=== PATIENT | male | born 1960 | race Caucasian/White ===

== ENCOUNTER 2017-01-18 05:07 | Inpatient (IN) | payer OTHER ==
--- NOTE | 2017-01-14 16:36 | PREOPHP ---
DATE OF ADMISSION: 01/18/2017 This patient is being admitted electively on 01/18/[address] Harry Luna. 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 He has had low back pain with radiation down the left leg and now has a left foot drop. The patient has failed medical therapy and has decided to undergo a lumbar sp ine surgery to take care of the problem. The patient denies any chest pain, shortness of breath, co ugh, ankle swelling. CURRENT MEDICATIONS: Include the followin. Allopurinol 100 mg twice a day. 2. Doxycycline 100 mg twice a day. 3. Loratadine 10 mg a day. 4. Vitamin C 1000 mg a day. PAST MEDICAL HISTORY: Remarkable for gout and allergic rhinitis. ALLERGIES: PENICILLIN AND AZITHROMYCIN. SURGICAL HISTORY: Bilateral shoulder surgery, right knee arthroscopy x2, vasectomy, tonsillectomy. FAMILY HISTORY: His father is of COPD. His mother is alive and well. SOCIAL HISTORY: The patient does not smoke, drinks alcohol socially. OCCUPATION: airplane captain. REVIEW OF SYSTEMS: CONSTITUTIONAL: No chills, no weight gain, no loss of appetite, no fever, no weakness, no weight lo ss, no fatigue. OPHTHALMOLOGIC: Negative. EARS, NOSE AND THROAT: Negative. CARDIORESPIRATORY: He denies any exertional chest pain or chest pressure. He has no history of hea rt disease or hypertension. GASTROINTESTINAL: Negative. NEUROLOGIC: He does have some tingling in his left lower leg and has a left foot drop. HEMATOLOGIC AND LYMPHATICS: Negative. UROLOGIC: Negative. PHYSICAL EXAMINATION: GENERAL: At this time reveals a well-developed man in no apparent distress. VITAL SIGNS: Temperature 97.6, pulse is 75, blood pressure 130/80. HEENT: Head normocephalic. Eyes: Extraocular muscles intact. Nose and mouth are normal. NECK: Supple. No neck vein distention. LUNGS: Clear to auscultation. HEART: Regular rhythm. No murmurs, gallops or rubs. ABDOMEN: Soft, nontender, no masses or megaly. EXTREMITIES: No peripheral edema. Pedal pulses were 2+ bilaterally. IMPRESSION: This patient is cleared for surgery. I will follow the patient postoperatively. Dictated By: GALINDO RAI MD ND/NTS Conf#: [id number] ELDA#: [id number]
[2017-01-17 14:51] VITALS: BMI 41.1
[2017-01-18] VITALS (18 sets, daily range): BP systolic 108–148; BP diastolic 62–108; PULSE 80–88; RESP 11–25; Ht 188 cm; Wt 144.2 kg
[~2017-01-18] VITALS: Ht 188 cm; Wt 144.2 kg
[~2017-01-18 05:07] MED LIST: LACTATED RINGER'S 1,000 ML IV* SCH
[2017-01-18] MEDS ORDERED: CEFAZOLIN 2 GM/50 ML (PMX) 50 ML IVPB ONE (06:00)
[2017-01-18] MEDS ORDERED: BLACK CHERRY PO (06:16)
[2017-01-18] MEDS ORDERED: ALLO100T PO (06:16)
[2017-01-18] MEDS ORDERED: SALM1CAP2 PO (06:16)
[2017-01-18] MEDS ORDERED: NIAC500T22 PO (06:16)
[2017-01-18] MEDS ORDERED: LORA10TA3 PO (06:16)
[2017-01-18] MEDS ORDERED: DOXY100T20 PO (06:16)
[2017-01-18] MEDS ORDERED: ASC500 PO (06:16)
--- NOTE | 2017-01-18 06:54 | HPN ---
Date/Time of Note Date/Time of Note DATE: 01/18/17 TIME: 06:54 Interval H&P Admission Note Pt. seen H&P reviewed: No system changes BIRGIT BIRD MD January 18, 2017 06:54
[2017-01-18] MEDS ORDERED: MIDAZOLAM 1 MG/ML 2 ML INJ ONE (06:58)
[2017-01-18] MEDS ORDERED: SUCCINYLCHOLINE CHLORIDE 100 MG/5 ML SYG IV ONE (06:58)
[2017-01-18] MEDS ORDERED: PROPOFOL 100 ML ONE ×2 (06:58→07:33)
[2017-01-18] MEDS ORDERED: FENTAnyl 50 MCG/ML VIAL ONE ×2 (06:58→07:34)
[2017-01-18] MEDS ORDERED: ROCURONIUM 50 MG INJ ONE (06:58)
[2017-01-18] MEDS ORDERED: BUPIVACAINE 0.25% (MPF) 10 ML 10 ML VIAL ONE (07:14)
[2017-01-18] MEDS ORDERED: POLYMYXIN/BACITRACIN 1L IRRIG ONE (07:14)
[2017-01-18] MEDS ORDERED: GELATIN SIZE 100 SPONGE ONE (07:14)
[2017-01-18] MEDS ORDERED: THROMBIN 5000 UNIT VIAL ONE ×2 (07:15→07:37)
[2017-01-18] MEDS ORDERED: hydrALAzine 20 MG INJ ONE (07:33)
[2017-01-18] MEDS ORDERED: LABETALOL HCL 20MG INJ ONE (07:37)
[2017-01-18] MEDS ORDERED: PHENYLephrine (100 MCG/ML) 5ML SYG ONE ×2 (07:41→07:54)
[2017-01-18] MEDS ORDERED: METOCLOPRAMIDE 10 MG INJ ONE (08:19)
[2017-01-18] MEDS ORDERED: KETOROLAC 30 MG INJ ONE (08:19)
[2017-01-18] MEDS ORDERED: ONDANSETRON 4 MG INJ ONE (08:19)
[2017-01-18] MEDS ORDERED: ACETAMINOPHEN 1000MG/100ML IV 100 ML ONE (08:19)
[2017-01-18] MEDS ORDERED: FAMOTIDINE 20 MG INJ ONE (08:19)
[2017-01-18] MEDS ORDERED: DEXAMETHASONE 4 MG/ML 1 ML INJ ONE (08:19)
[2017-01-18] MEDS ORDERED: GLYCOPYRROLATE 0.4 MG INJ ONE (08:36)
[2017-01-18] MEDS ORDERED: NEOSTIGMINE 3 MG/3 ML SYRINGE ONE (08:36)
[2017-01-18] MEDS ORDERED: MEPERIDINE 25 MG INJ IV PRN (09:00)
[2017-01-18] MEDS ORDERED: EPHEDrine SULFATE 50 MG/5 ML SYG IV PRN (09:00)
[2017-01-18] MEDS ORDERED: morphine (1 MG/ML) 10ML SYRINGE IV PRN ×3 (09:00)
[2017-01-18] MEDS ORDERED: METOCLOPRAMIDE 10 MG INJ IV PRN (09:00)
[2017-01-18] MEDS ORDERED: FENTAnyl 50 MCG/ML VIAL IV PRN ×3 (09:00)
[2017-01-18] MEDS ORDERED: ONDANSETRON 4 MG INJ IV PRN ×2 (09:00→09:30)
[2017-01-18] MEDS ORDERED: LABETALOL HCL 20MG INJ IV PRN (09:00)
[2017-01-18] MEDS ORDERED: hydrALAzine 20 MG INJ IV PRN (09:00)
[2017-01-18] MEDS ORDERED: DIPHENHYDRAMINE 50 MG INJ IV PRN (09:00)
[2017-01-18] MEDS ORDERED: HYDROmorphONE (0.2 MG/ML) 10ML SYG IV PRN ×2 (09:00)
[2017-01-18] MEDS: HYDROmorphONE (0.2 MG/ML) 10ML SYG IV PRN ×3 (09:19→09:37)
[2017-01-18] MEDS ORDERED: DIAZEPAM 5 MG TAB PO PRN (09:30)
[2017-01-18] MEDS ORDERED: AL HYDROX/MG HYDROX/SIMETH 30 ML CUP PO PRN (09:30)
[2017-01-18] MEDS ORDERED: NALOXONE (0.4 MG/ML) INJ IV PRN (09:30)
[2017-01-18] MEDS ORDERED: TRIMETHOBENZAMIDE 100 MG/ML VIAL IM PRN (09:30)
[2017-01-18] MEDS ORDERED: HYDROmorphONE 0.2 MG/ML PCA IV SCH (09:30)
[2017-01-18] MEDS ORDERED: PROCHLORPERAZINE 10 MG TAB PO PRN (09:30)
[2017-01-18] MEDS ORDERED: ZOLPIDEM 5 MG TAB PO PRN (09:30)
[2017-01-18] MEDS ORDERED: NACL 0.9% 3 ML SYG IV SCH (09:30)
[2017-01-18] MEDS ORDERED: HYDROCODONE/APAP (5/325) TAB PO PRN (09:30)
[2017-01-18] MEDS ORDERED: DIPHENHYDRAMINE 50 MG CAP PO PRN (09:30)
[2017-01-18] MEDS ORDERED: DIAZEPAM 5 MG/ML SYG IM PRN (09:30)
[2017-01-18] MEDS ORDERED: BETHANECHOL 25 MG TAB PO PRN (09:30)
[2017-01-18] MEDS ORDERED: ACETAMINOPHEN 325 MG TAB PO PRN (09:30)
[2017-01-18] MEDS ORDERED: CEPASTAT LOZENGE MT PRN (09:30)
--- NOTE | 2017-01-18 10:18 | OPR ---
DATE OF OPERATION: 01/18/2017 PREOPERATIVE DIAGNOSIS: Herniated disk L4-5 on the left. POSTOPERATIVE DIAGNOSIS: Herniated disk, L4-5 on the left. OPERATION PERFORMED: 1. Left hemilaminotomy, L4. 2. Microdiskectomy, L4-5 on the left. 3. Medial facetectomy and foraminotomy, L4-5 on the left. 4. Cosmetic wound closure (2.6 cm). 5. Lateral localized lumbar radiographs (2). 6. Intraoperative nerve monitoring (1 hour). SURGEON: Harry Luna MD IRON MELTER: NATALIYA Flower ANESTHESIA: General endotracheal. ANESTHESIOLOGIST: Josue Cole MD ESTIMATED BLOOD LOSS: 10 mL-none replaced. DRAINS: Two medium Hemovac drains employed. COMPLICATIONS: None. PERTINENT HISTORY AND PHYSICAL: This is a 56-year-old male with persistent back and left leg pain w hich has been unrelieved by conservative management following industrial injury of 01/10/2010. He h as had extensive care since that time, has remained symptomatic. He has undergone a number of diagn ostic studies including an MRI of the lumbar spine, which demonstrated a herniated disk L4-5 on the left. Treatment options were discussed with the patient, who elected to proceed with surgery. OPERATIVE FINDINGS AT SURGERY: A small left paracentral herniation at L4-5 was confirmed. Baseline intraoperative nerve monitoring revealed a decrease in the left L4 potential of 30%, the left L5 po tential of 60%. These returned to normal at the completion of the surgery. OPERATIVE PROCEDURE: With the patient in supine position after satisfactory induction of general en dotracheal anesthesia by Dr. Cole, the patient was turned to the prone kneeling position on the [facility] frame. All pressure points were carefully padded. Back was prepped and draped in usual shiloh rile fashion. Athrombic pumps were applied to the legs below the knees to be prevent venous stasis during and after procedure. Two spinal needles were placed next to what was felt to be the L4 and L 5 spinous processes, lateral roentgenogram was taken which confirmed anatomic localization. A 2.6 c m incision then carried out midline over the spinous process of L4 after the skin was infiltrated wi th 0.25% Marcaine without epinephrine for postoperative analgesia. Superficial retractors were plac ed and hemostasis secured with electrocautery. Throughout the procedure, copious amounts of antibac terial irrigating solution were used to periodically irrigate the wound. The fascia was incised in midline with a hot knife and unilateral subperiosteal dissection carried out at L4 on the left. Anabell p retractors were placed with and deep hemostasis secured with electrocautery. A second intraoperat kristina radiograph was taken with deep retractor at what was felt to be the L4-5 interspace, and this wa s confirmed with second x-ray. A left hemilaminotomy at L4 was then carried out using Leksell ronge ur, Kerrison punches and curettes. Ligamentum flavum was excised with sharp dissection. The operat ing microscope was then moved into place. A medial facetectomy and foraminotomy was accomplished us ing small hand osteotome, mallet, Kerrison punches and curettes. The L5 root was then mobilized med ially and protected with Nohelia nerve root retractor using microdissection technique. This reveal ed a herniation of the L4-5 disk on the left. A 15 blade knife used to cut a rectangular window in the annulus and posterior longitudinal ligament and multiple degenerative disk fragments were harves jasvir with pituitary rongeurs and sent to laboratory for pathologic study. Additional fragments were harvested using Ruby curettes. A thorough search of the floor of the canal was made with an arth roscopic probe. No additional fragments were encountered. The epidural hemostasis was secured with bipolar electrocautery on low setting. The anesthesiologist was then asked to perform a Valsalva m aneuver at 40 mmHg and no spinal fluid leakage was noted. The wound was closed in layers over 2 med ium Hemovac drains, one below the fascia and one above the fascia using #1 Vicryl [id number] ap proximating sutures in deep paralumbar musculature and deep fascia of back, 2-0 Vicryl subcutaneous approximating sutures in subcu in subcu tissue, and a 4-0 Vicryl subcuticular cosmetic closing sutur e on the skin. Dermabond and sterile compressive dressings were applied. The patient tolerated the procedure well, was then turned to supine position onto his bed and extubated by Dr. Cole. He w as transported to the recovery room in satisfactory condition. At the conclusion of the procedure, sponge, instrument, and needle counts were all correct. NEED FOR AIR SUPPORT CONTROL OFFICER: During this spinal surgical procedure, my orthopaedic physician assistant was used to retrac t and protect the spinal nerves and dural sac. My orthopaedic physician assistant also employed the suction catheters to e vacuate blood from the surgical field to improve visualization of the neural structures. The assista nt was medically necessary to facilitate the completion of the surgery in a safe and expeditious man ner. [facility] [place] regulations, as well as hospital bylaws, preclude the use of non-licensed [facility] care personnel such as operating room technicians, to perform these functions. Throughout the procedure, neural monitoring was carried out by [employer] including EMG, SSEP and MEP monitoring of the L3, L4, L5, and S1 nerve roots bilaterally along with spinal cord potentials. These were interpreted by a neurologists employed by [employer]. Dictated By: HARRY LUNA MD TM/NTS Conf#: [id number] DID#: [id number] CC: GALINDO RAI MD;*End*
[2017-01-18] MEDS: FERROUS SULFATE (EC) 325 MG TAB PO SCH ×2 (10:30→20:28)
--- NOTE | 2017-01-18 10:54 | RADRPT ---
PROCEDURE: Intraoperative XR. CLINICAL INDICATION: Intraoperative radiograph during L4-5 lumbar decompression. TECHNIQUE: Spot intraoperative lateral lumbar x-ray image was provided. The images were reviewed on a high-resolution PACS workstation. COMPARISON: None available FINDINGS: Spot intraoperative lateral lumbar view were provided during lumbar spine surgery. The images demon strate metallic probes at the level of L4 and L5. IMPRESSION: 1. Spot intraoperative lateral lumbar view during lumbar spine surgery were provided. 2. Please see operative report of the same day for further information. RPTAT: DD .Miguel Ayala MD, MD Date Time Electronically viewed and signed by .Miguel Ayala MD, on 01/18/2017 10:54 .S/
--- NOTE | 2017-01-18 10:55 | RADRPT ---
PROCEDURE: Intraoperative XR. CLINICAL INDICATION: Intraoperative radiograph during L4-5 microdiskectomy. TECHNIQUE: Spot intraoperative lateral the lumbar x-ray image was provided. The images were revie wed on a high-resolution PACS workstation. COMPARISON: None available FINDINGS: Spot intraoperative lateral lumbar view were provided during L4-5 microdiskectomy. The images demon strate metallic instrumentation at the level of L4-5. IMPRESSION: 1. Spot intraoperative lateral lumbar view during L4-5 microdiskectomy were provided. 2. Please see operative report of the same day for further information. RPTAT: DD .Miguel Ayala MD, Date Time Electronically viewed and signed by .Miguel Ayala MD, on 01/18/2017 10:55 .S/
[2017-01-18] MEDS: DEXTROSE 5%-0.45% NACL 1,000 ML IV SCH ×2 (13:01→18:32)
[2017-01-18] MEDS: CEFAZOLIN 1 GM/50 ML (PMX) 50 ML IVPB SCH ×3 (13:02→23:15)
--- NOTE | 2017-01-18 14:20 | CONS ---
DATE OF ADMISSION: 01/18/2017 DATE OF CONSULTATION: 01/18/2017 TYPE OF CONSULTATION: Medical. Thank you, Dr. Luna, for asking me to participate in medical management of this patient. REASON FOR CONSULTATION: To manage the patient's gout, hayfever, and rosacea. HISTORY OF PRESENT ILLNESS: This 56-year-old man is now postop a lumbar spine surgery. The patient was having low back pain with radiation down his left leg and developed a left foot drop. The julianna ent was injured at work about 7 years ago. 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 The patient failed medical therapy and decided to undergo the surgery, which was done thi s morning. The patient at this time is awake and alert. He denies any chest pain or shortness of b reath. The patient did undergo a lumbar spine surgery, left hemilaminectomy at L4, microdiscectomy at L4, L5 on the left for a herniated disk at that level. CURRENT MEDICATIONS: Include the followin. Allopurinol 100 mg twice a day. 2. Doxycycline 100 mg twice a day. 3. Loratadine 10 mg a day. 4. Vitamin C 1000 mg a day. PAST MEDICAL HISTORY: Remarkable for gout, allergic rhinitis and rosacea. SURGICAL HISTORY: Bilateral shoulder surgery, right knee arthroscopy x2, vasectomy, tonsillectomy. FAMILY HISTORY: Father is of COPD. Mother is alive and well. SOCIAL HISTORY: The patient does not smoke, drinks alcohol socially. 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 PHYSICAL EXAMINATION GENERAL: At this time reveals a well-developed man in no apparent distress. VITAL SIGNS: Temperature 98, pulse 88, respirations 19, blood pressure 124/69, O2 saturation 98% on room air. HEENT: Head normocephalic. Eyes: Extraocular muscles intact. Nose and mouth are normal. NECK: Supple. No neck vein distention. LUNGS: Clear to auscultation. HEART: Regular rhythm. No murmurs, gallops or rubs. ABDOMEN: Soft, nontender, no masses or megaly. EXTREMITIES: No peripheral edema. IMPRESSION: This patient is stable after surgery today. His blood pressure is normal. The patient is awake and alert without any chest pain or shortness of breath. He does have some incisional timothy k pain that is being controlled with medication. I will follow the patient and manage his hayfever, rosacea, and gout. PLAN: 1. Resume some routine medications. 2. Check labs in the morning. 3. Postop lumbar spine surgery protocol. 4. I will follow the patient along with you. Dictated By: GALINDO RAI MD, ND/SHAWNA Conf#: [id number] DID#: [id number]
[2017-01-18] MEDS: ALLOPURINOL 100 MG TAB PO SCH (20:28)
[2017-01-18] MEDS: DOXYCYCLINE 100 MG TAB PO SCH (20:28)
[2017-01-18] MEDS: RANITIDINE 150 MG TAB PO SCH (20:28)
[2017-01-19 04:51] LABS: HEMATOCRIT 40.2 % (42.0-52.0); HEMOGLOBIN 13.3 g/dl (14.0-18.0)
[2017-01-19] MEDS: CEFAZOLIN 1 GM/50 ML (PMX) 50 ML IVPB SCH (05:08)
[2017-01-19] MEDS: DEXTROSE 5%-0.45% NACL 1,000 ML IV SCH (05:08)
[2017-01-19 05:22] LABS: POTASSIUM 4.3 mmol/L (3.5-5.1)
[2017-01-19 05:25] LABS: CREATININE 1.06 mg/dl (0.61-1.24)
[2017-01-19 05:26] LABS: CALCIUM 8.7 mg/dl (8.4-10.2)
--- NOTE | 2017-01-19 07:22 | PN ---
Date/Time of Note Date/Time of Note DATE: 01/19/17 TIME: 07:19 Assessment/Plan Lines/Catheters IV Catheter Type (from Nrs): Peripheral IV Subjective 24 Hr Interval Summary Patient is postop day #1 from lumbar microdiscectomy. He is doing well, neurovascular structures are intact. Vital signs are stable. Hemoglobin this morning was 13.3. Drain had minimal output and this was removed. Plan for today's progress ambulation and possible DC if cleared by physical therapy and internal medicine. Exam/Review of Systems Vital Signs Vitals Vital Signs Date Time Temp Pulse Resp B/P Pulse Ox O2 Delivery O2 Flow Rate FiO2 01/19/17 04:42 18 01/18/17 23:21 98.4 80 118/64 95 01/18/17 14:42 Nasal Cannula 2.0 Intake and Output 01/18/17 01/18/17 01/19/17 15:00 23:00 07:00 Intake Total 1650 ml 1250 ml 3620 ml Output Total 20 ml 720 ml 3650 ml Balance 1630 ml 530 ml -30 ml Results Result Diagram: 01/19/17 0435 01/19/17 0435 WILY MICHAEL January 19, 2017 07:21
[2017-01-19] MEDS ORDERED: BETHANECHOL 25 MG TAB PO PRN (08:00)
[2017-01-19 08:10] VITALS: BP 125/60; RESP 18
[2017-01-19] MEDS: DOXYCYCLINE 100 MG TAB PO SCH (08:57)
[2017-01-19] MEDS: FERROUS SULFATE (EC) 325 MG TAB PO SCH ×2 (08:57→13:00)
[2017-01-19] MEDS: ALLOPURINOL 100 MG TAB PO SCH (08:58)
[2017-01-19] MEDS: RANITIDINE 150 MG TAB PO SCH (08:58)
[2017-01-19] MEDS ORDERED: DOCUSATE SODIUM 100 MG CAP PO SCH (09:00)
[2017-01-19] MEDS ORDERED: ASCORBIC ACID 500 MG TAB PO SCH (09:00)
[2017-01-19] MEDS ORDERED: LORATADINE 10 MG TAB PO SCH (09:00)
--- NOTE | 2017-01-19 10:16 | CONS ---
Date/Time of Note Date/Time of Note DATE: 01/19/17 TIME: 10:14 Assessment/Plan Assessment/Plan Chief Complaint/Hosp Course 1. He is 1 day post op a lumbar spine surgery and doing well 2. He can be discharged to home today . Problems: Consultation Date/Type/Reason Admit Date/Time January 18, 2017 at 05:07 Initial Consult Date 24 HR Interval Summary Free Text/Dictation He is up walking with PT and doing well Constitutional: improved, no complaints Exam/Review of Systems Vital Signs Vitals Vital Signs Date Time Temp Pulse Resp B/P Pulse Ox O2 Delivery O2 Flow Rate FiO2 01/19/17 08:10 98.0 72 18 125/60 96 01/18/17 14:42 Nasal Cannula 2.0 Intake and Output 01/18/17 01/18/17 01/19/17 15:00 23:00 07:00 Intake Total 1650 ml 1250 ml 3620 ml Output Total 20 ml 720 ml 3650 ml Balance 1630 ml 530 ml -30 ml Exam Constitutional: alert, oriented, well developed Respiratory: clear to auscultation, normal air movement Cardiovascular: nl pulses, regular rate and rhythm Gastrointestinal: nl liver, spleen, non-tender, soft Musculoskeletal: nl extremities to inspection Results Result Diagram: 01/19/17 0435 01/19/17 0435 Results 24 hrs Laboratory Tests Test 01/19/17 04:35 Hemoglobin 13.3 L Hematocrit 40.2 L Sodium Level 140 Potassium Level 4.3 Chloride Level 100 Carbon Dioxide Level 29 Anion Gap 15 Blood Urea Nitrogen 18 Creatinine 1.06 Glucose Level 127 Calcium Level 8.7 Medications Medications Current Medications Lactated Ringer's 1,000 ml @ 25 mls/hr Q24H IV* ; Start 01/18/17 at 05:00; Stop 01/19/17 at 20:59 Dextrose/Sodium Chloride (D5-1/2ns) 1,000 ml @ 100 mls/hr Q10H IV Last administered on 01/19/17t 05:08; Admin Dose 100 MLS/HR; Start 01/18/17 at 09:02 Acetaminophen/ Hydrocodone Bitart (Bostwick (5/325)) 1 tab Q4H PRN PO PAIN LEVEL 1 -5; Start 01/18/17 at 09:30 Acetaminophen/ Hydrocodone Bitart (Bostwick (5/325)) 2 tab Q4H PRN PO PAIN LEVEL 6 -10; Start 01/18/17 at 09:30 Zolpidem Tartrate (Ambien) 5 mg HS PRN PO INSOMNIA; Start 01/18/17 at 09:30 Prochlorperazine (Compazine) 10 mg Q4H PRN PO NAUSEA AND/OR VOMITING; Start 06/27 at 09:30 Trimethobenzamide HCl (Tigan) 200 mg Q4H PRN IM NAUSEA AND/OR VOMITING; Start 01/18/17 at 09:30 Ondansetron HCl (Zofran Inj) 4 mg Q6H PRN IV NAUSEA AND/OR VOMITING Last administered on 01/18/17 19:36; Admin Dose 4 MG; Start 01/18/17 at 09:30 Al Hydrox/Mg Hydrox/Simethicone (Mag-Al Plus) 15 ml Q4H PRN PO CONSTIPATION; Start 01/18/17 at 09:30 Docusate Sodium (Colace) 100 mg BID PO Last administered on 01/19/17 08:57; Admin Dose 100 MG; Start 01/19/17 at 09:00 Acetaminophen (Tylenol Tab) 650 mg Q4H PRN PO TEMP GREATER THAN 101F OR ROBINS; Start 01/18/17 at 09:30 Ascorbic Acid (Vitamin C) 1,000 mg BID PO Last administered on 01/19/17 08:57 ; Admin Dose 1,000 MG; Start 01/19/17 at 09:00 Ferrous Sulfate (Ferrous Sulfate (Ec)) 325 mg TID PO Last administered on 08:57; Admin Dose 325 MG; Start 01/18/17 at 10:30 Ranitidine HCl (Zantac) 150 mg BID PO Last administered on 01/19/17 08:58; Admin Dose 150 MG; Start 01/18/17 at 21:00 Diazepam (Valium) 5 mg Q4H PRN PO MUSCLE SPASMS; Start 01/18/17 at 09:30 Diazepam (Valium) 5 mg Q4H PRN IM MUSCLE SPASMS; Start 01/18/17 at 09:30 Phenol (Cepastat Lozenge) 1 lozenge PRN PRN MT SORE THROAT; Start 01/18/17 at 09:30 Diphenhydramine HCl (Benadryl) 50 mg Q6H PRN PO PRURITUS; Start 01/18/17 at 09: 30 Hydromorphone HCl (Dilaudid RESEARCH PSYCHOLOGIST) Q4PCA IV Last administered on 01/18/17 09:31 ; Admin Dose 6 MG; Start 01/18/17 at 09:30 Naloxone HCl (Narcan) 0.2 mg Q2M PRN IV RR 8 BREATHS/MIN OR LESS; Start at 09:30 Allopurinol (Zyloprim) 100 mg BID PO Last administered on 01/19/17 08:58; Admin Dose 100 MG; Start 01/18/17 at 21:00 Doxycycline Hyclate (Vibramycin) 100 mg BID PO Last administered on 01/19/17 08:57; Admin Dose 100 MG; Start 01/18/17 at 21:00 Loratadine (Claritin) 10 mg DAILY PO Last administered on 01/19/17 08:56; Admin Dose 10 MG; Start 01/19/17 at 09:00 Bethanechol Chloride (Urecholine) 25 mg PRN PRN PO UNABLE TO VOID; Start at 08:00 GALINDO RAI MD January 19, 2017 10:16
--- NOTE | 2017-01-19 10:17 | PDOCDIS ---
Discharge Instructions CONDITION Patient Condition: Good HOME CARE INSTRUCTIONS: Diet Instructions: RegularSpecial Diet: REGULAR ACTIVITY: Activity Restrictions: Slowly Increase Activity Rest between Activity Avoid heavy lifting Do not Drive Avoid Heavy Housework Bathing Restrictions: ShowerActivity Restrictions Comment: January shower five days after surgery FOLLOW UP/APPOINTMENTS Appointments GALINDO Cruz MD January 19, 2017 10:17
[2017-01-19] MEDS: HYDROCODONE/APAP (5/325) TAB PO PRN ×2 (10:27→13:45)
--- NOTE | 2017-01-19 13:43 | OPPN ---
Date/Time of Note Date/Time of Note DATE: 01/19/17 TIME: 13:43 Post-Anesthesia Notes Post-Anesthesia Note Last documented vital signs Vital Signs Date Time Temp Pulse Resp B/P Pulse Ox O2 Delivery O2 Flow Rate FiO2 01/19/17 08:10 98.0 72 18 125/60 96 01/18/17 14:42 Nasal Cannula 2.0 Activity: WNL Respiratory function: WNL Cardiovascular function: WNL Mental status: Baseline Pain reasonably controlled: Yes Hydration appropriate: Yes Nausea/Vomiting absent: Yes KATRINA JOSE MD January 19, 2017 13:43
== END 2017-01-19 13:55 | disposition home or self-care (01) | DRG 520 ==
LOC: REC 05:07 → MS1 10:23
PROVIDERS: ADMIT Orthopaedic Surgery; ATTEND Orthopaedic Surgery
PROC: 0SB20ZZ Excision of Lumbar Vertebral Disc, Open Approach (ICD-10-PCS; principal; 2017-01-18 07:00)
DX: M51.26 Other intervertebral disc displacement, lumbar region (principal); M10.9 Gout, unspecified; Z88.0 Allergy status to penicillin
CPT/HCPCS: 72020; 80048; 85014; 85018; 86850; 86900; 86901; 86920; 97116; 97162; 97530; J0131; J0330; J0360; J0690; J1100; J1170; J1885; J2250; J2370; J2405; J2710; J2765; J3010; J7042; J7120